=== PATIENT | female | born 1990 | race Two or more races ===

== ENCOUNTER → 2016-07-14 | Outpatient (REF) | payer OTHER | LOC: M SFHCLERA 12:49 | PROVIDERS: ATTEND Physician Assistant | DX: J02.9 Acute pharyngitis, unspecified (principal) ==

== ENCOUNTER 2017-07-06 19:03 | Emergency (ER) | payer OTHER | END 2017-07-06 22:45 | disposition left against medical advice (07) | LOC: M ED 22:45 | DX: Z53.29 Procedure and treatment not carried out because of patient's decision for other reasons (principal) ==

== ENCOUNTER 2017-09-07 21:32 | Emergency (ER) | payer OTHER ==
[2017-09-07 22:30] LABS: HEMATOCRIT 37.8 % (36.0-47.0); HEMOGLOBIN 12.5 g/dl (12.0-15.5); MEAN CORPUSCULAR HEMOGLOBIN 30.8 pg (27.0-33.0); MEAN CORPUSCULAR HGB CONC 33.1 g/dl (32.0-36.5); MEAN CORPUSCULAR VOLUME 93.1 fl (80.0-96.0); PLATELET COUNT, AUTOMATED 256 10^3/uL (150-450); RED BLOOD COUNT 4.06 10^6/uL (4.00-5.40); RED CELL DISTRIBUTION WIDTH 12.6 % (11.5-14.5); WHITE BLOOD COUNT 8.7 10^3/uL (4.0-10.0)
[2017-09-07 22:41] LABS: CONTROL LINE HCG INT CTR LINE PRESENT; HCG, SERUM QUALITATIVE NEGATIVE (NEGATIVE)
[2017-09-07 22:43] LABS: AMPHETAMINES LEVEL URINE NEGATIVE (NEGATIVE); BARBITURATES URINE NEGATIVE (NEGATIVE); BENZODIAZEPINES URINE NEGATIVE (NEGATIVE); CANNABINOIDS URINE POSITIVE (NEGATIVE); COCAINE METABOLITE URINE NEGATIVE (NEGATIVE); METHADONE URINE NEGATIVE (NEGATIVE); OPIATES URINE NEGATIVE (NEGATIVE); PHENCYCLIDINE URINE NEGATIVE (NEGATIVE)
[2017-09-07 23:02] LABS: ALBUMIN 3.5 GM/DL (3.2-5.2); ALBUMIN/GLOBULIN RATIO 0.95 (1.00-1.93); ALKALINE PHOSPHATASE 59 U/L (45-117); ALT/SGPT 30 U/L (12-78); ANION GAP 8 MEQ/L (8-16); AST/SGOT 30 U/L (7-37); BILIRUBIN,DIRECT < 0.1 MG/DL (0.0-0.2); BILIRUBIN,TOTAL 0.2 MG/DL (0.2-1.0); BLOOD UREA NITROGEN 9 MG/DL (7-18); CALCIUM LEVEL 8.3 MG/DL (8.5-10.1); CARBON DIOXIDE LEVEL 25 MEQ/L (21-32); CHLORIDE LEVEL 110 MEQ/L (98-107); CREATININE FOR GFR 0.63 MG/DL (0.55-1.30); ETHYL ALCOHOL (ETHANOL) 0.009 % (0.000-0.010); GLOMERULAR FILTRATION RATE > 60.0 (>60); GLUCOSE, FASTING 81 MG/DL (70-100); POTASSIUM SERUM 3.8 MEQ/L (3.5-5.1); SALICYLATE LEVEL 2.7 MG/DL (5.0-30.0); SODIUM LEVEL 143 MEQ/L (136-145); TOTAL PROTEIN 7.2 GM/DL (6.4-8.2)
[2017-09-07 23:04] LABS: ACETAMINOPHEN LEVEL < 2.0 UG/ML (10.0-30.0)
== END 2017-09-07 23:53 | disposition home or self-care (01) ==
LOC: M ED 21:32
DX: F43.0 Acute stress reaction (principal); M54.5 Low back pain; F17.210 Nicotine dependence, cigarettes, uncomplicated; Z79.84 Long term (current) use of oral hypoglycemic drugs
CPT/HCPCS: G0480

== ENCOUNTER 2017-10-21 14:18 | Emergency (ER) | payer OTHER | END 2017-10-21 16:27 | disposition home or self-care (01) | LOC: M ED 14:18 | DX: K04.7 Periapical abscess without sinus (principal) | CPT/HCPCS: 99282 ==

== ENCOUNTER → 2018-06-04 | Emergency (ER) | payer OTHER ==
[~2018-06-04] VITALS: Ht 167.6 cm; Wt 100.0 kg
[~2018-06-04] MED LIST: ASPI1TAB77 PO; BACT800T5 PO; CLEO300C2 PO; HYDR-3715 PO; LIDO2SO SSP; METF500T13 PO; TYLETAB14 PO
[2018-06-04 23:50] VITALS: BP 131/75
== END | disposition left against medical advice (07) ==
LOC: M ED 20:44
DX: Z53.21 Procedure and treatment not carried out due to patient leaving prior to being seen by health care provider (principal)

== ENCOUNTER 2018-06-08 10:35 | Emergency (ER) | payer OTHER ==
[~2018-06-08] VITALS: Ht 167.6 cm; Wt 109.1 kg
[2018-06-08 10:35] VITALS: BP 141/80
[~2018-06-08 10:35] MED LIST changes: -BACT800T5 PO; -TYLETAB14 PO
[2018-06-08] MEDS ORDERED: LIDOCAINE 1% MDV 20ML VIAL SC ONE (11:00)
[2018-06-08] MEDS ORDERED: BACT800T5 PO (11:13)
[2018-06-08] MEDS ORDERED: TYLETAB14 PO (11:14)
== END 2018-06-08 11:36 | disposition home or self-care (01) ==
LOC: M ED 10:35
DX: N75.0 Cyst of Bartholin's gland (principal); F31.9 Bipolar disorder, unspecified; F43.10 Post-traumatic stress disorder, unspecified

== ENCOUNTER 2018-06-17 11:09 | Emergency (ER) | payer OTHER ==
[~2018-06-17] VITALS: Ht 167.6 cm; Wt 112.0 kg
[2018-06-17 11:09] VITALS: BP 131/77
[~2018-06-17 11:09] MED LIST changes: +BACT800T5 PO; +TYLETAB14 PO
== END 2018-06-17 11:34 | disposition home or self-care (01) ==
LOC: M ED 11:09
DX: Z48.02 Encounter for removal of sutures (principal)

== ENCOUNTER 2018-07-23 12:11 | Emergency (ER) | payer OTHER ==
[~2018-07-23] VITALS: Ht 167.6 cm; Wt 116.9 kg
[2018-07-23] MEDS ORDERED: ACETAMINOPHEN 500 MG TAB PO ONE (13:15)
[2018-07-23] MEDS ORDERED: LEVALBUTEROL 1.25 MG/0.5 ML CONCENTRATE NEB INH PRN (13:15)
[2018-07-23] MEDS ORDERED: METOCLOPRAMIDE 10 MG TAB PO ONE (13:15)
[2018-07-23 14:02] LABS: INFLUENZA A AMPLIFICATION NEGATIVE (NEGATIVE); INFLUENZA B AMPLIFICATION NEGATIVE (NEGATIVE)
--- NOTE | 2018-07-23 14:59 | REP ---
Chest two views HISTORY: Cough Comparison: None The lungs are clear. The heart is normal in size. The pulmonary vasculature is normal in appearance. The bony structure is intact. IMPRESSION: No acute disease. Electronically Signed by Alexis Cummings MD 07/23/2018 02:51 P
[2018-07-23] MEDS ORDERED: PROAAER10 INH (15:14)
[2018-07-23] MEDS ORDERED: PRED20TA PO (15:14)
[2018-07-23] MEDS ORDERED: AUGM875T28 PO (15:14)
[2018-07-23] MEDS ORDERED: MUCI600T31 PO (15:14)
[2018-07-23 15:29] VITALS: BP 116/84
[2018-07-23] MEDS ORDERED: AUGMENTIN 875 MG TAB PO ONE (15:30)
== END 2018-07-23 15:32 | disposition home or self-care (01) ==
LOC: M ED 12:11
DX: J20.9 Acute bronchitis, unspecified (principal); H66.93 Otitis media, unspecified, bilateral; E28.2 Polycystic ovarian syndrome; M54.9 Dorsalgia, unspecified; F31.9 Bipolar disorder, unspecified; F43.10 Post-traumatic stress disorder, unspecified; F41.9 Anxiety disorder, unspecified; Z98.84 Bariatric surgery status; Z87.891 Personal history of nicotine dependence

== ENCOUNTER 2018-08-17 21:48 | Emergency (ER) | payer OTHER ==
[~2018-08-17] VITALS: Ht 167.6 cm; Wt 113.6 kg
[~2018-08-17 21:48] MED LIST changes: +AUGM875T28 PO; +MUCI600T31 PO; +PRED20TA PO; +PROAAER10 INH
[2018-08-17] MEDS ORDERED: SUCRALFATE SUSP 1GM/10ML UD PO ONE (22:30)
[2018-08-17] MEDS ORDERED: GI COCKTAIL 50ML BTL(HYOSCYAMINE/MAALOX/LIDOCAINE VISCOUS)(1:3:1) PO ONE (22:30)
[2018-08-17] MEDS ORDERED: PANTOPRAZOLE 40MG TAB (PROTONIX) PO ONE (22:30)
[2018-08-17 22:56] LABS: BASO % 0.5 % (0.0-1.0); EOS # 0.3 10^3/uL (0.0-0.50); EOS % 3.6 % (0.0-3.0); HEMATOCRIT 35.1 % (36.0-47.0); HEMOGLOBIN 11.3 g/dl (12.0-15.5); LYMPH # 2.8 10^3/uL (1.5-6.5); LYMPH % 37.5 % (24.0-44.0); MEAN CORPUSCULAR HEMOGLOBIN 30.6 pg (27.0-33.0); MEAN CORPUSCULAR HGB CONC 32.2 g/dl (32.0-36.5); MEAN CORPUSCULAR VOLUME 95.1 fl (80.0-96.0); MONO # 0.5 10^3/uL (0.0-0.8); MONO % 6.6 % (0.0-5.0); NEUTROPHILS # 3.9 10^3/uL (1.8-7.7); NEUTROPHILS % 51.7 % (36.0-66.0); PLATELET COUNT, AUTOMATED 246 10^3/uL (150-450); RED BLOOD COUNT 3.69 10^6/uL (4.00-5.40); WHITE BLOOD COUNT 7.5 10^3/uL (4.0-10.0)
[2018-08-17 23:21] LABS: ALBUMIN 3.3 GM/DL (3.2-5.2); ALT/SGPT 21 U/L (12-78); BILIRUBIN,DIRECT 0.1 MG/DL (0.0-0.2); BILIRUBIN,TOTAL 0.2 MG/DL (0.2-1.0); BLOOD UREA NITROGEN 9 MG/DL (7-18); CALCIUM LEVEL 8.5 MG/DL (8.5-10.1); CARBON DIOXIDE LEVEL 28 MEQ/L (21-32); CHLORIDE LEVEL 108 MEQ/L (98-107); CREATININE FOR GFR 0.71 MG/DL (0.55-1.30); GLOMERULAR FILTRATION RATE > 60.0 (>60); GLUCOSE, FASTING 76 MG/DL (70-100); LIPASE 111 U/L (73-393); POTASSIUM SERUM 3.9 MEQ/L (3.5-5.1); SODIUM LEVEL 141 MEQ/L (136-145); TOTAL PROTEIN 6.7 GM/DL (6.4-8.2)
[2018-08-18] MEDS ORDERED: PROT1TAB2 PO (00:16)
[2018-08-18] MEDS ORDERED: SUCR1SS PO (00:16)
[2018-08-18 01:11] VITALS: BP 110/70
--- NOTE | 2018-08-18 07:07 | ECGEPIP ---
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
== END 2018-08-18 01:36 | disposition home or self-care (01) ==
LOC: M ED 21:48
DX: K21.9 Gastro-esophageal reflux disease without esophagitis (principal); F31.9 Bipolar disorder, unspecified; E66.9 Obesity, unspecified; Z98.84 Bariatric surgery status; F17.200 Nicotine dependence, unspecified, uncomplicated

== ENCOUNTER 2018-09-06 14:30 | Emergency (ER) | payer OTHER ==
[~2018-09-06] VITALS: Ht 167.6 cm; Wt 115.0 kg
[~2018-09-06 14:30] MED LIST changes: +PROT1TAB2 PO; +SUCR1SS PO
[2018-09-06] MEDS ORDERED: ACET1TAB55 (14:42)
[2018-09-06] MEDS ORDERED: AMOX500C PO (16:40)
[2018-09-06 16:43] VITALS: BP 158/88
[2018-09-06] MEDS ORDERED: PERCOCET 5MG/325MG TAB PO ONE (16:45)
[2018-09-06] MEDS ORDERED: AMOXICILLIN 500 MG CAP PO ONE (16:45)
== END 2018-09-06 16:47 | disposition home or self-care (01) ==
LOC: M ED 14:30
DX: K02.9 Dental caries, unspecified (principal); H92.01 Otalgia, right ear; F41.9 Anxiety disorder, unspecified; F31.9 Bipolar disorder, unspecified; F43.10 Post-traumatic stress disorder, unspecified; E28.2 Polycystic ovarian syndrome

== ENCOUNTER 2019-04-05 15:11 | Outpatient (CLI) | payer OTHER ==
[~2019-04-05] VITALS: Ht 170.2 cm; Wt 136.2 kg
[~2019-04-05 15:11] MED LIST changes: +ACET1TAB55 PO; +AMOX500C PO
[2019-04-05 15:40] VITALS: BP 140/93
[2019-04-05] MEDS ORDERED: PRENTAB9 PO (15:48)
[2019-04-05] MEDS ORDERED: ASPI81TA85 PO (15:48)
[2019-04-05 15:58] VITALS: BP 105/73
[2019-04-05 18:08] VITALS: BP 142/87
[2019-04-05 18:37] VITALS: BP 117/81
--- NOTE | 2019-04-05 19:02 | IPNPDOC ---
Text Note Date of Service The patient was seen on 04/05/19. NOTE Triage Note Ilana is a 28yo with SIUP at approx 35wk presenting for various symptoms today. She notes a fever at home, some nausea, runny nose yesterday, sore throat, some back pain. Did not go to work today. Has felt good movement, no ctx, no lof, no vaginal bleeding. No MCGREGOR/vision changes/SOB/Abd pain. Vitals: bp 140/93, 105/73, 142/87, 117/81 (pulse 78, pulse ox 98%) Afebrile General: WDWN, obese, gravid, resting comfortably in bed Abdomen: soft, NTTP Extremities: trace edema BLE, no pain with palpation of calves Cat I FHRT with bl 125, +accels, -decels, mod ynes [place]: no ctx Labs: Respiratory panel negative Rapid strep negative Assessment: Ilana is a 28yo with SIUP at approx 35wk with myriad complaints but negative testing for flu and strep throat. Reassuring assessment. Had mild range bp followed by normal (no hx of HTN dz per pt)- question appropriateness of bp cuff used, no sx of pre-E. Normal exam, afebrile. Plan: -Safe for discharge home -Encouraged increased hydration (patient was drinking water well in triage and ate a sandwich) -Patient instructed to come to clinic Tu or Sun for bp check -Keep next appts for 36wk growth scan and 36wk ob visit -tylenol prn pain or fever -discussed return precautions MD KARLEE Terry,[place], I+O VSGuanako, I+O Vital Signs Date Time Temp Pulse Resp B/P (MAP) Pulse Ox O2 Delivery O2 Flow Rate FiO2 04/05/19 18:08 77 16 142/87 (105) 04/05/19 15:40 98.8 96 Room Air Abigail Callaway MD Apr 05, 2019 19:02
== END 2019-04-05 18:58 | disposition home or self-care (01) ==
LOC: M LDO 15:11
PROVIDERS: ATTEND Obstetrics & Gynecology
DX: O26.893 Other specified pregnancy related conditions, third trimester (principal); Z3A.35 35 weeks gestation of pregnancy; R11.0 Nausea; R09.89 Other specified symptoms and signs involving the circulatory and respiratory systems; R50.9 Fever, unspecified; O99.53 Diseases of the respiratory system complicating the puerperium; J02.9 Acute pharyngitis, unspecified; M54.5 Low back pain; Z79.899 Other long term (current) drug therapy
CPT/HCPCS: 59025; 76815; 87430; 87486; 87581; 87633; 87798; G0378; G0463

== ENCOUNTER 2019-04-11 10:25 | Outpatient (CLI) | payer OTHER ==
[~2019-04-11] VITALS: Ht 170.2 cm; Wt 136.4 kg
[~2019-04-11 10:25] MED LIST changes: -MAPA500T2 PO
[2019-04-11 10:46] VITALS: BP 136/70
--- NOTE | 2019-04-11 23:11 | HPE ---
DATE OF ADMISSION: 04/11/2019 28-year-old 2, para 0, abortio 1, LMP 07/31/2018, estimated date of delivery (EDC) 05/07/2019 admitted at 36 and 3, history of having eaten some food at [employer] and now having nausea, diarrhea and vomiting as well as the rest her friends having similar episode of GI upset, possibly food poisoning. She denies any vaginal loss or bleeding or contractions. Risk factors. Her BMI is 40.5. She has had a gastric sleeve bypass and recent ultrasound shows mild oligohydramnios with PHANI 6.3. PAST HISTORY Spontaneous in 2018. Labs are O+, HIV negative, hep negative, RPR negative, rubella immune. Varicella nonimmune. Pap normal. Urine negative. Gonorrhea and chlamydia negative, an A1c was 5.2, blood pressure is 136/70, respirations 18, pulse 126 and temperature 98.6, unable to get a urine as she was unable to pee. While here she had some ice chips. She never vomited, had no diarrhea. PHYSICAL EXAMINATION: On examination she was in no distress. Symphysis fundus height was 36, vertex, category one strip. No contractions, moderate variability. Baseline was normal. No decelerations. She was not dilated. Cervix was posterior, closed and high presenting part. On ultrasound cervix was 2.8 cm and not dilated. Baby is the 50th percent at 2882 grams. PHANI was 6.3 which is mild oligo and S/D ratio was 2.80. Our plan is to bring her in tomorrow morning with adequate hydration, repeat the PHANI and the NST. She was given precautions. We discussed the plan of care with the patient. She is expecting a call from labor and delivery tomorrow morning. SUMMARY: We have a GI upset secondary to food and BMI of 40.5 with mild oligohydramnios. Category one strip and a biophysical of 8/8.
[2019-04-12] MEDS ORDERED: MAPA500T2 PO (10:13)
== END 2019-04-11 11:40 | disposition home or self-care (01) ==
LOC: M LDO 10:25
PROVIDERS: ATTEND Obstetrics & Gynecology
DX: O99.613 Diseases of the digestive system complicating pregnancy, third trimester (principal); R19.7 Diarrhea, unspecified; O99.213 Obesity complicating pregnancy, third trimester; E66.01 Morbid (severe) obesity due to excess calories; O99.843 Bariatric surgery status complicating pregnancy, third trimester; O41.03X0 Oligohydramnios, third trimester, not applicable or unspecified; Z3A.36 36 weeks gestation of pregnancy
CPT/HCPCS: 59025; 76811; G0378; G0463

== ENCOUNTER → 2019-04-11 | Outpatient (CLI) | payer OTHER ==
[~2019-04-11] MED LIST changes: +ASPI81TA85 PO; +MAPA500T2 PO; +PRENTAB9 PO
--- NOTE | 2019-04-11 14:52 | REP ---
Clinical: Growth evaluation. Comparison: None . Findings: Examination demonstrates a single live intrauterine in cephalic presentation. motion is identified by technologist. Placenta is noted anterior and grade I without evidence for placenta previa or abruption. Amniotic fluid volume is mildly below normal range. Cervix measures 2.8 cm in length and appears closed. No evidence for nuchal cord. Gestational age by LMP 36 weeks 2 days with JOSE LUIS 05/07/2019 . Gestational age by current measurements 36 weeks 0 days with JOSE LUIS 05/09/2019 . FHR equals 144 beats per minute. Estimated weight 2882 grams ( 50th percentile). Amniotic fluid index: 6.3 cm (7.6 - 24.8) Umbilical cord SD ratio: 2.80 (1.88 - 2.88) Impression: 1. Single live advanced gestation in cephalic presentation demonstrating appropriate interval growth. 2. Amniotic fluid volume is below normal range suggesting mild oligohydramnios. Electronically Signed by Abelino Dent MD 04/11/2019 12:41 P
== END ==
LOC: M RAD 11:47
PROVIDERS: ATTEND Nurse Practitioner Women's Health
DX: Z36.9 Encounter for antenatal screening, unspecified (principal); Z3A.36 36 weeks gestation of pregnancy

== ENCOUNTER 2019-04-12 09:51 | Outpatient (CLI) | payer OTHER ==
[~2019-04-12] VITALS: Ht 170.2 cm; Wt 134.9 kg
[2019-04-12 10:07] VITALS: BP 128/71
[2019-04-12] MEDS ORDERED: MAPA500T2 PO (10:13)
--- NOTE | 2019-04-12 10:59 | IPNPDOC ---
Text Note Date of Service The patient was seen on 04/12/19. NOTE patient is a 28 yo @ 36+3wks gestation presents to l&d for reevaluation for low PHANI (~6cm) yesterday. She had n/v yesterday from eating something at [facility]. Reports she has been keeping po down though not drinking much fluids. The plan today per Dr. Sanchez was to have patient come in for repeat PHANI, NST and IV fluid bolus. patient denies ctx/lof/vb. +FM. vitals: normal NAD abd: gravid, soft, nt fht: 125/mod ynes/pos accel/no decel toco: quiet taus: cephalic, anterior/fundal placenta. SDP: 3.9cm a/p patient @ 36+3wks, normal exam. hydration counseling given. labor/fkc precautions given. f/u with clinic scheduled appointments. DO Eun VS,Fishbone, I+O VS, Fishbone, I+O Vital Signs Date Time Temp Pulse Resp B/P (MAP) Pulse Ox O2 Delivery O2 Flow Rate FiO2 04/12/19 10:07 97.8 96 16 128/71 (90) ABRAHAM BECERRA DO Apr 12, 2019 10:59
[2019-04-12] MEDS ORDERED: LR 1,000 ML IV ONE (11:00)
[2019-04-12 11:27] VITALS: BP 128/81
== END 2019-04-12 11:29 | disposition home or self-care (01) ==
LOC: M LDO 09:51
PROVIDERS: ATTEND Obstetrics & Gynecology
DX: O41.8X30 Other specified disorders of amniotic fluid and membranes, third trimester, not applicable or unspecified (principal); Z3A.36 36 weeks gestation of pregnancy
CPT/HCPCS: 59025; 76815; G0378; G0463

== ENCOUNTER 2019-05-08 17:05 | Inpatient (IN) | payer OTHER ==
[~2019-05-08] VITALS: Ht 167.6 cm; Wt 134.7 kg
[~2019-05-08 17:05] MED LIST changes: +MAPA500T2 PO
[2019-05-08 17:29] VITALS: BP 138/77
[2019-05-08 17:40] VITALS: BP 133/62
[2019-05-08] MEDS ORDERED: PENICILLIN G POTASSIUM IV 5 MU in D5W MINI-BAG PLUS 100 ML IV STA (18:35)
[2019-05-08] MEDS ORDERED: LACTATED RINGER'S 1000 ML IV STA (18:35)
[2019-05-08] MEDS ORDERED: SIMETHICONE 80 MG CHEW TAB PO PRN (18:45)
[2019-05-08] MEDS ORDERED: CALCIUM CARBONATE 500 MG CHEW U/D PO PRN (18:45)
[2019-05-08] MEDS ORDERED: diphenhydrAMINE 25 MG CAP PO PRN (18:45)
[2019-05-08] MEDS ORDERED: ACETAMINOPHEN 500 MG TAB PO PRN (18:45)
[2019-05-08] MEDS ORDERED: MOM 30ML SUSPENSION UDC PO PRN (18:45)
[2019-05-08 18:54] VITALS: BP 131/74
[2019-05-08] MEDS: miSOPROStol 50 MCG 1/2 TAB (S0191) PO PRN (18:54)
--- NOTE | 2019-05-08 18:55 | HPEPDOC ---
Obstetrical History & Physical General Date of Admission May 08, 2019 at 17:05 History of Present Illness Patient is a 28yo at 40.1wks by LMP c/w 8wk US for IOL . Denies contr actions, bleeding, loss of fluid, headaches, RUQ pain, or vision changes. + movement. Chief Complaint: Group B Positive, Other (IOL) Information Provided By: Patient Care Care: Good Care Dating Final EDC: May 07, 2019 Final EDC by: LMP Antepartum Course Height (inches): 66 Pre- weight (lbs.): 253 Admission Weight (lbs.): 297 Change in Weight (lbs.): 44 Past Medical History Past Obstetrical History : Past Obstetrical History: Primgravida GRIP BOSS History: No pertinent history Past Medical History Medical History none Surgical History: Other (Gastric sleeve) Family History Significant Family History: No pertinent family hx Social History Marital Status: Family situation: Spouse/partner home Psychosocial History: No pertinent psych hx * Smoker: non-smoker Alcohol: Denies Drugs: denies Abuse Violence Screening Have you been hit/kicked/slapp: No Have you been sexually assault: No Imunizations Tdap status: current Influenza Status: current Allergies Coded Allergies: No Known Allergies (Unverified , 04/12/19) Medications Scheduled No.137/Iron/Folic Acd ( Vitamin Tablet) 1 Each Tablet, 1 TAB PO DAILY Physical Examination Physical Examination GENERAL: Alert and oriented times three. BREAST: . ABDOMEN: Gravid and non-tender to touch. FETUS: Is vertex (VTX) by sterile vaginal examination (SVE), fetus is 3300gm by [place]. HEART RATE: Regular rate and rhythm. LUNGS: Clear to auscultation (CTA). EXTREMITIES: No edema. Vital Signs/I&O Vital Signs Date Time Temp Pulse Resp B/P (MAP) Pulse Ox O2 Delivery O2 Flow Rate FiO2 05/08/19 17:40 79 18 133/62 (85) 05/08/19 17:29 98.0 98 Room Air Laboratory Data 24H LABS Laboratory Tests 2 05/08/19 17:20: Serology Scanned Report Hepatitis B Testing Pertinent Laboratoy Data Blood Type: O+ RBC Antibody Screen: Negative HIV: Negative Hepatitis B: Negative Rapid Plasma Reagin: Nonreactive Rubella: Immune Varicella: Nonreactive Chlamydia/Gonorrhea: Negative Group B Streptococcus: Positive Cystic Fibrosis: Negative Anatomy Ultrasound Ultrasound Date: Dec 16, 2018 Placenta Location: Anterior Normal Anatomy: Yes Placenta Previa: No Estimated Weight (grams): 338 Other Ultrasounds 04/11/2019 vtx, 2882gm Steroid Therapy Steroid Therapy: No Vaginal Examination Dilation: 1cm Effacement: 50% Station: -2 Cervical Consistency: Soft Cervical Position: Middle Presentation: Cephalic presentation Assessment Heart Rate (FHR): 130 Variability: Moderate Accelerations: Positive Decelerations: None Tocometer Contractions: No Multi-drug resistant Organism: No history of MDRO Assessment/Plan Assessment Patient is a 28yo at 40.1wks by LMP c/w 8wk US for IOL . Admit for IOL for postdates and expect delivery by . Pain management per patient preference, which was discussed with her. I discussed risks of with patient of failure with section, distress, bleeding, infection, , vaginal or perineal or neighboring organ tear. Currently, fetus is reassuring. GBS is positive, will need for antibiotics. Plan Admit and orient. 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 Diet: Regular. Group B Streptococcus (GBS) positive. Labs and intravenous (IV) per unit protocol. Counseled on Pitocin and cytotec for induction of labor (IOL). Lactated Ringers (LR): Bolus 500 mL, then at 125 mL/hr. Anticipate normal spontaneous delivery (). Pain management per patient preference. Rasheeda Courtney MD May 08, 2019 18:55
[2019-05-08 19:01] LABS: BASO % 0.1 % (0.0-1.0); EOS # 0.1 10^3/uL (0.0-0.5); EOS % 0.5 % (0.0-3.0); HEMATOCRIT 36.8 % (36.0-47.0); HEMOGLOBIN 11.9 g/dl (12.0-15.5); LYMPH # 1.9 10^3/uL (1.5-5.0); LYMPH % 20.7 % (24.0-44.0); MEAN CORPUSCULAR HEMOGLOBIN 29.5 pg (27.0-33.0); MEAN CORPUSCULAR HGB CONC 32.3 g/dl (32.0-36.5); MEAN CORPUSCULAR VOLUME 91.3 fl (80.0-96.0); MONO # 0.5 10^3/uL (0.0-0.8); MONO % 5.3 % (0.0-5.0); NEUTROPHILS # 6.7 10^3/uL (1.5-8.5); NEUTROPHILS % 73.1 % (36.0-66.0); PLATELET COUNT, AUTOMATED 265 10^3/uL (150-450); RED BLOOD COUNT 4.03 10^6/uL (4.00-5.40); WHITE BLOOD COUNT 9.2 10^3/uL (4.0-10.0)
[2019-05-08] MEDS ORDERED: **PENDING PCN ENTRY XX SCH (21:00)
[2019-05-08] MEDS ORDERED: PENICILLIN G POTASSIUM IV 2.5 MU in IV 1 EA IV SCH (22:45)
[2019-05-09] VITALS (16 sets, daily range): BP systolic 107–143; BP diastolic 56–95
[2019-05-09] MEDS: miSOPROStol 50 MCG 1/2 TAB (S0191) PO PRN ×2 (00:58→07:18)
--- NOTE | 2019-05-09 07:09 | IPNPDOC ---
Text Note Date of Service The patient was seen on 05/09/19. NOTE Patient feels mild intermittent cramps. Good movement. No LOF or bloody show. Received x2 cytotec 50mcg PO. VS WNL GEN NAD, sleeping ABD gravid, nontender SVE /2, difficult to examen due to patient discomfort FHT: cat 1, 120s, reactive, no decels, difficult to picking tech ctx A/P: Fetus reassuring. Consider carter bulb. Continue Po cytotec 50mcg. VS,Fishbone, I+O VS, Fishbone, I+O Laboratory Tests 05/08/19 18:35 Vital Signs Date Time Temp Pulse Resp B/P (MAP) Pulse Ox O2 Delivery O2 Flow Rate FiO2 05/09/19 01:00 97.3 82 120/63 (82) 05/08/19 18:54 18 05/08/19 17:29 98 Room Air I&O- Last 24 Hours up to 6 AM 05/09/19 06:00 Intake Total 600 ml Balance 600 ml Rasheeda Courtney MD May 09, 2019 07:09
--- NOTE | 2019-05-09 08:28 | IPNPDOC ---
Obstetrical Progress Note Date of Service May 09, 2019 Subjective Received report from Dr. Courtney and assumed care of 28yo at 40+2wks who was admitted yesterday for IOL d/t morbid obesity (BMI >40). She has received 3x doses of 50mcg PO cytotec; last dose this AM at 0720. Pt reports +FM, denies LOF/VB/CTX. She denied any cramping to me. She is currently eating breakfast and desires to get up to the shower and on the ball. She states she had an emesis episode approximately 15 minutes after her last cytotec administration; she denies seeing the medication, but there is a good possibility that it did not get absorbed. We can consider a 5th dose, if needed. Objective O: VSS, afebrile FHR 125, moderate variability, +accels, no decels noted CTX by TOCO: none VE deferred; last was 0700 (150/-2) Laboratory Tests 05/08/19 18:35 Vital Signs Date Time Temp Pulse Resp B/P (MAP) Pulse Ox O2 Delivery O2 Flow Rate FiO2 05/09/19 07:17 98.1 85 16 130/90 (103) 05/08/19 17:29 98 Room Air Assessment and Plan Status: Reassuring Anticipate: Vaginal Delivery Additional Comments A: Ilana is a 28yo at 40+2wks undergoing IOL for morbid obesity, not in labor; Category I FHT P: Continue IOL and plan for Cytotec #4 in 4 hours after last dose Consider CRB with next exam CEFM x2 for 1 hour after each dose of cytotec, then can be intermittent monitoring Continue to monitor maternal/ status Consult with OB if indicated Anticipate AGUEDA ROSS CNM May 09, 2019 08:28
[2019-05-09] MEDS ORDERED: miSOPROStol 25 MCG 1/4 TAB (S0191) As Ordered ONE (11:54)
--- NOTE | 2019-05-09 12:28 | IPNPDOC ---
Obstetrical Progress Note Date of Service May 09, 2019 Subjective 28yo at 40+2wks undergoing IOL for morbid obesity. She reports some intermittent cramping, +FM; she denies VB/LOF. She has no OB concerns at this time and she consents for a cervical exam. Her supportive partner is present at the bedside. Objective O: VSS, afebrile FHR 130s, moderate variability, + accels, no decels noted CTX by TOCO: few occassionals, mild, none recent VE: /-2 (unchanged) CRB at 40/40 an Cytotec #4 (25mcg vaginally) placed at 1207 Vital Signs Date Time Temp Pulse Resp B/P (MAP) Pulse Ox O2 Delivery O2 Flow Rate FiO2 05/09/19 10:04 98.3 85 18 131/60 (83) 05/08/19 17:29 98 Room Air Sterile Vaginal Examination Cervical Consistency: Medium Cervical Position: Posterior Postion/Presentation: Cephalic presentation Assessment and Plan Status: Reassuring Group B Streptococcus: Positive Anticipate: Vaginal Delivery Additional Comments A: 28yo at 40+2wks undergoing IOL for morbid obesity, not in labor; GBS Positive. Category I FHT. P: CRB and Cytotec #4 placed, pt tolerated well CEFM x1 hour, can be intermittent with Category I tracing Can eat lunch reassess in 4 hours or sooner PRN Consult with OB if indicated Anticipate AGUEDA ROSS CNM May 09, 2019 12:28
[2019-05-09] MEDS ORDERED: miSOPROStol 25 MCG 1/4 TAB (S0191) PV ONE (12:30)
[2019-05-09] MEDS: PROMETHAZINE INJ 25 MG/ML VIAL (J2550) IV PRN (14:39)
[2019-05-09] MEDS ORDERED: ONDANSETRON 4MG/2ML VIAL (J2405) IV ONE (16:00)
[2019-05-09] MEDS: BUTORPHANOL 2 MG/ML INJ (J0595) IV PRN (17:03)
--- NOTE | 2019-05-09 17:46 | IPN ---
DATE: 05/09/2019 28-year-old 2, para 0 at 40 and 2 weeks of gestation was admitted for induction of labor. Her risk factors is she is GBS positive. She has a BMI of 42. She has had a total weight change of 45 pounds. Presently her weight is 297. She is O+. She has had three boluses of three lots of Cytotec. She has had one Barroso bulb catheter. She has a category one strip. She is afebrile and presently she is nauseated and vomiting and despite anti nausea and she is unable to maintain any fluids. She has presently an IV running. We examined her and we are unable to detect any change. The Barroso bulb is still in place. We are unable to examine the cervix because of the vaginal bulb being blown up. The patient says she is having a lot of pain when she has a contraction mostly in her back. Our plan of care is to hydrate the patient, give her some Stadol at the present time with a category one strip, initiate GBS prophylaxis at 1900 hours and then augment with Pitocin pending a category one strip. The plan of care was expressed to the patient and she expressed understanding of our rationale.
[2019-05-09] MEDS ORDERED: PENICILLIN G POTASSIUM IV 5 MU in D5W MINI-BAG PLUS 100 ML IV STA (18:51)
[2019-05-09] MEDS: LR 1,000 ML IV SCH (19:55)
--- NOTE | 2019-05-09 20:04 | IPN ---
DATE: 05/09/2019 This lady is a 1, para 0 at 42 weeks of gestation. She had induction of labor because of being early post term and she had four lots of Cytotec followed by a Barroso bulb catheter. The Barroso bulb catheter has subsequently fallen out. She is having minimal contractions, category 1 strip. On pelvic examination the vertex is -3, soft, 50% effaced, high and still 2 cm. No evidence of active contractions. Our plan of management presently is to augment with Pitocin. She had significant reactions to Cytotec in that she has extreme nausea and vomiting, which was unrelenting nausea. Therefore, we will initiate the penicillin G prophylaxis for group B Streptococcus (GBS) and commenced with Pitocin.
[2019-05-09] MEDS ORDERED: OXYTOCIN DRIP 30 UNITS in IV 1 EA IV SCH (20:45)
[2019-05-10] VITALS (45 sets, daily range): BP systolic 116–178; BP diastolic 62–107
[2019-05-10] MEDS: PENICILLIN G POTASSIUM IV 2.5 MU in IV 1 EA IV SCH ×6 (00:09→19:18)
[2019-05-10] MEDS: LR 1,000 ML IV SCH ×2 (07:16→12:55)
[2019-05-10] MEDS: BUTORPHANOL 2 MG/ML INJ (J0595) IV PRN (08:07)
[2019-05-10] MEDS: PROMETHAZINE INJ 25 MG/ML VIAL (J2550) IV PRN (08:07)
--- NOTE | 2019-05-10 10:03 | IPNPDOC ---
Text Note Date of Service The patient was seen on 05/10/19. NOTE 28yo at 40+3wks undergoing IOL for morbid obesity. She was admitted night of . Induction started with cytotec x 3. carter bulb was placed yesterday, came out earlier this AM. she is currently on pit. Stadol for pain management at this point. Patient requesting for primary section. pit: 10mU vitals: normal nad, laying in bed fht: 120/mod ynes/pos accel/no decel toco: q 2-7mins ce: 2-05/13/-3, attempt to AROM unsuccessful a/p patient not in labor. Discussed with patient induction for first time mom can take a few days. once she gets to active phase then we can start the clock. Due to significant risks of major surgery like primary delivery, recommend continuing trial of vaginal delivery at this time. patient in agreement. Continue to titrate pit to effect. recheck in 6hrs. Eun, VS,[place]bone, I+O VS, Fishbone, I+O Vital Signs Date Time Temp Pulse Resp B/P (MAP) Pulse Ox O2 Delivery O2 Flow Rate FiO2 05/10/19 08:31 16 05/10/19 08:06 88 132/73 (92) 05/10/19 07:05 98.1 05/08/19 17:29 98 Room Air I&O- Last 24 Hours up to 6 AM 05/10/19 06:00 Intake Total 250 ml Balance 250 ml ABRAHAM BECERRA DO May 10, 2019 09:28
--- NOTE | 2019-05-10 11:15 | IPN ---
DATE: 05/10/2019 This lady is admitted for induction of labor being 40 and 2 weeks of gestation. She did start with four lots of Cytotec and then she had a Barroso bulb, which fell out, and then she was augmented with Pitocin. There were some areas, after starting Pitocin, on the monitor that showed reduced variability, probably category II strip with occasional late. We discontinued the Pitocin for awhile. I reinitiated Pitocin, baby was doing well. Contractions have not picked up at the present time. The patient is afebrile, is on IV antibiotics for Group B Streptococcus (GBS). Membranes are intact. Our plan is to continue Pitocin to the point where we have the ability to do an artificial rupture of membranes (AROM). There is basically no change in her cervix at the present time; still vertex -2, 2 cm and high, OP and thick. Safe to proceed.
[2019-05-10] MEDS ORDERED: FENTANYL 2MCG/ML ROPIVACAINE 0.2% IN 0.9% NACL 100ML IVBAG As Ordered ONE (13:59)
--- NOTE | 2019-05-10 14:01 | IPNPDOC ---
Text Note Date of Service The patient was seen on 05/10/19. NOTE patient on pit 20mU/min. She is having pain with contractions. desiring epidural fht: 145/mod ynes/pos accel/no decel toco: ctx q2-3mins, difficult to nut picker due to patient's body habitus. CE: 3-4/50/-2, no palpable bag on baby's head a/p patient in latent labor. okay for epidural. will reassess for ROM and place IUPC. alex, DO VS,Fishbone, I+O VS, Fishbone, I+O Vital Signs Date Time Temp Pulse Resp B/P (MAP) Pulse Ox O2 Delivery O2 Flow Rate FiO2 05/10/19 13:11 98.6 69 18 178/107 (130) 05/08/19 17:29 98 Room Air I&O- Last 24 Hours up to 6 AM 05/10/19 06:00 Intake Total 250 ml Balance 250 ml ABRAHAM BECERRA DO May 10, 2019 14:01
--- NOTE | 2019-05-10 15:10 | IPNPDOC ---
Text Note Date of Service The patient was seen on 05/10/19. NOTE patient is feeling comfortable with epidural. 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 ce: /-2, IUPC and fse placed for monitoring. a/p patient in latent labor. continue to titrate pit to effect. recheck in 6hrs. Le, DO VS,Fishbone, I+O VS, Fishbone, I+O Vital Signs Date Time Temp Pulse Resp B/P (MAP) Pulse Ox O2 Delivery O2 Flow Rate FiO2 05/10/19 13:11 98.6 69 18 178/107 (130) 05/08/19 17:29 98 Room Air I&O- Last 24 Hours up to 6 AM 05/10/19 06:00 Intake Total 250 ml Balance 250 ml ABRAHAM BECERRA DO May 10, 2019 15:10
[2019-05-10] MEDS ORDERED: REFRIGERATOR IV KEYS XX PRN (15:15)
[2019-05-10] MEDS ORDERED: NALOXONE INJ 0.4 MG/1 ML VIAL (J2310) IV PRN ×3 (15:15→21:49)
[2019-05-10] MEDS ORDERED: FENTANYL/ROPIVACAINE/NACL BAG 100 ML EPIDURAL SCH (15:15)
[2019-05-10] MEDS ORDERED: diphenhydrAMINE INJ 50MG/ML VIAL (J1200) IV PRN (15:15)
[2019-05-10] MEDS ORDERED: EPIDURAL COMMENT XX SCH (15:15)
[2019-05-10] MEDS ORDERED: ePHEDrine SULFATE 25 MG/5 ML(5MG/ML) SYRINGE IV PRN (15:15)
[2019-05-10] MEDS ORDERED: EPIDURAL/PCA KEYS XX PRN (15:15)
[2019-05-10] MEDS ORDERED: LACTATED RINGER'S 1000 ML IV PRN (15:15)
[2019-05-10] MEDS ORDERED: ONDANSETRON 4MG/2ML VIAL (J2405) IV PRN ×3 (15:15→22:45)
[2019-05-10] MEDS ORDERED: OXYTOCIN DRIP 30 UNITS in IV 1 EA IV SCH ×2 (15:45→22:32)
--- NOTE | 2019-05-10 20:03 | IPNPDOC ---
Text Note Date of Service The patient was seen on 05/10/19. NOTE patient has epidural for pain management. pit: 22mU vitals: normal to mild range nad, laying in bed fht: 155/min to mod ynes/no accel/late decels toco: ctx q 2-3mins ce: /-2 per nursing a/p patient in latent labor, remote from delivery with recurrent late decels. given oxygen and fluid bolus, positional changes does not help with FHT. stop pit. Discussed with patient my concern for intolerant to labor. At this time will monitor baby for another 30-60mins. Discussed with patient option of section now or wait to see how baby tolerates labor without pit. If baby shows improvement then pit may be restarted. If not then I would recommend section at that time. Patient states she would like to wait and see how baby does without pit. pit off, reassess in 30 minutes Le, DO VS,Fishbone, I+O VS, Fishbone, I+O Vital Signs Date Time Temp Pulse Resp B/P (MAP) Pulse Ox O2 Delivery O2 Flow Rate FiO2 05/10/19 18:59 98.7 88 142/77 (98) 05/10/19 17:00 18 05/08/19 17:29 98 Room Air I&O- Last 24 Hours up to 6 AM 05/10/19 06:00 Intake Total 250 ml Balance 250 ml ABRAHAM BECERRA DO May 10, 2019 20:03
--- NOTE | 2019-05-10 20:54 | IPNPDOC ---
Text Note Date of Service The patient was seen on 05/10/19. NOTE Come to room and discussed with patient regarding restarting pitocin. Patient desires to have primary section at this time. Discussed with patient longer recovery due to pain. risks of infection, bleeding requiring blood transfusion, hysterectomy, injury to surrounding organs, take back to the OR for infection or injury, possible general anesthesia as well as possible injury to baby discussed with patient. patient expresses understanding and desires to proceed with section. ancef and azithromycin for prophy. back to or once team ready. Le, DO VS,Fishbone, I+O VS, Fishbone, I+O Vital Signs Date Time Temp Pulse Resp B/P (MAP) Pulse Ox O2 Delivery O2 Flow Rate FiO2 05/10/19 18:59 98.7 88 142/77 (98) 05/10/19 17:00 18 05/08/19 17:29 98 Room Air I&O- Last 24 Hours up to 6 AM 05/10/19 06:00 Intake Total 250 ml Balance 250 ml ABRAHAM BECERRA DO May 10, 2019 20:54
[2019-05-10] MEDS ORDERED: MORPHINE PRES-FREE INJ 10 MG/10 ML VIAL (J2274) As Ordered ONE (20:55)
[2019-05-10] MEDS ORDERED: OXYTOCIN INJ 10 UNITS/ML VIAL (J2590) As Ordered ONE (20:57)
[2019-05-10] MEDS ORDERED: LIDOCAINE 2% W/EPIN INJ 20ML **PRES FREE As Ordered ONE (21:00)
[2019-05-10] MEDS ORDERED: AZITHROMYCIN INJ 500 MG, VIAL MATE ADAPTER 1 EACH in D5W 250 ML IV ONE (21:00)
[2019-05-10] MEDS ORDERED: ceFAZolin SOD 2 GM in IV 1 EA IV ONE (21:00)
[2019-05-10] MEDS ORDERED: BICITRA 30ML SOLN UDC PO ONE (21:00)
[2019-05-10] MEDS ORDERED: ceFAZolin SOD 1 GM in D5W MINI-BAG PLUS 50 ML IV ONE (21:00)
[2019-05-10] MEDS ORDERED: ceFAZolin SOD 3 GM in IV 1 EA IV ONE (21:00)
[2019-05-10] MEDS ORDERED: PHENYLephrine HCL 500 MCG/5 ML (100MCG/ML) SYRINGE (J2370) As Ordered ONE (21:44)
[2019-05-10] MEDS ORDERED: dexameTHASONE 4 MG/ML 1ML VIAL (J1100) As Ordered ONE (21:44)
[2019-05-10] MEDS ORDERED: ONDANSETRON 4MG/2ML VIAL (J2405) As Ordered ONE (21:44)
[2019-05-10] MEDS ORDERED: METOCLOPRAMIDE INJ 10MG/2ML VIAL (J2765) IV PRN (21:49)
[2019-05-10] MEDS ORDERED: NALBUPHINE HCL 10 MG/ML AMP (J2300) IV PRN (21:49)
[2019-05-10] MEDS ORDERED: RHOGAM 300 MCG (1500 IU) INJ (J2790) IM SCH (22:45)
[2019-05-10] MEDS ORDERED: PERCOCET 5MG/325MG TAB PO PRN (22:45)
[2019-05-10] MEDS ORDERED: MEASLES,MUMPS,RUBELLA VACCINE INJ (MMR-II) (90707) SC SCH (22:45)
[2019-05-10] MEDS ORDERED: oxyCODONE 5MG TAB PO PRN (22:45)
[2019-05-10] MEDS ORDERED: fentaNYL 100 MCG/2 ML INJECTION (J3010) IV PRN (22:45)
[2019-05-10] MEDS ORDERED: KETOROLAC 30 MG/ML VIAL (J1885) As Ordered ONE (23:10)
[2019-05-10] MEDS: KETOROLAC 30 MG/ML VIAL (J1885) IV SCH (23:15)
--- NOTE | 2019-05-10 23:33 | POST-OPPD ---
Postoperative Procedure Note Date Of Procedure: May 10, 2019 PREOPERATIVE DIAGNOSIS: 1) Gravid @ 40+3wks gestation 2) non-augmentable heart tracing 3) morbid obesity POSTOPERATIVE DIAGNOSIS: 1) status post section 2) morbid obesity FINDINGS: viable female infant, 9/9, OP presentation PROCEDURE: Primary low transverse section SURGEON: Dr. Ricky Haq DO VIDEO EDITOR: Dr. Margo Kc MD ANESTHESIA: Epidural SPECIMENS: none ESTIMATED BLOOD LOSS: 600cc REPLACED: 1500cc LR DRAINS: 150 cc urine COMPLICATIONS: none POSTOPERATIVE CONDITION: stable Indication for procedure: Patient is a 28 yo @ 40+3wks with admitted for IOL for morbid obesity. She progressed to 5cm. heart tracing with recurrent late while patient on Pitocin. Patient with non-augmentable heart tracing, remote from [place] [facility]. Patient desires to have primary low transverse delivery. Description of procedure: The risks, benefits, indications and alternatives to the procedure were reviewed with the patient and informed consent was obtained. Labor epidural anesthesia was dosed for surgical analgesic. She was prepped and draped in the normal sterile fashion in the dorsal supine position with a leftward tilt. The abdomen was entered through a pfannenstiel incision. Sharp dissection taken down to fascia layer. Fascia layer entered with sharply and carried lateral and upward bilaterally. Space between fascia and rectus muscle created bluntly. The rectus muscles and peritoneum bluntly along midline and exposes the gravid uterus. Mobius retractor placed. The vesicouterine peritoneum was identified. A Gibson uterine incision made sharply. The uterine incision was extended superolaterally. Baby cephalic, OP. Head delivered through the hysterotomy. The anterior (right) shoulder delivered, followed by the posterior shoulder. Body followed with ease. The cord was clampedx2 and cut. The was handed off to baby nurse. Pitocin bolus started. Cord blood collected for routine lab. The placenta delivered spontaneously. The uterus was cleared of all clots and debris. The uterine incision was repaired with 2 layers of using 0-Chromic in a running locking fashion and 0-monocryl imbricating layer. Hysterotomy inspected to be hemostatic. Mobius retractor removed. Gutters were cleared of clots. Hysterotomy inspected to be hemostatic. The peritoneum, fascia and muscle bellies were inspected and noted to be hemostatic. The pe ritoneum brought back together midline with 3-0 vicryl. The fascia approximated with 0 vicryl suture in a running fashion. The subcutaneous tissue closed with 3-0 vicryl. The skin was closed with subcuticular 4-0 monocryl. Dressing applied. The vagina was cleared of clots. Sponge laps, needle and instruments count correct x 2. Patient taken to recovery room in stable condition. DO MARIAM Haq LUAT N. May 10, 2019 23:33
[2019-05-10] MEDS ORDERED: PERCOCET 5MG/325MG TAB As Ordered ONE (23:36)
[2019-05-11] VITALS (9 sets, daily range): BP systolic 115–144; BP diastolic 53–83
[2019-05-11] MEDS: diphenhydrAMINE INJ 50MG/ML VIAL (J1200) IV PRN ×2 (02:26→11:56)
[2019-05-11] MEDS: POLYSPORIN TOPICAL OINTMENT 15GM TOP SCH ×4 (02:26→21:32)
[2019-05-11] MEDS: KETOROLAC 30 MG/ML VIAL (J1885) IV SCH ×3 (05:28→18:37)
--- NOTE | 2019-05-11 06:29 | DNPDOC ---
[facility] Delivery Note Delivery Note DATE OF DELIVERY: 05/10/2019 PREDELIVERY DIAGNOSIS: 40+3/7 weeks' gestation and labor. POST DELIVERY DIAGNOSIS: Delivered. PROCEDURE: primary low transverse section DAIRY TESTER: Dr. Abraham Haq DO ANESTHESIA: epidural ESTIMATED BLOOD LOSS: 600 mL. FINDINGS: 6lbs 14oz, 3180 gm female infant, Score 9/9. DELIVERY SUMMARY: uncomplicated primary low transverse section. see operative note for details. ABRAHAM HAQ DO May 11, 2019 06:29
[2019-05-11 07:03] LABS: HEMATOCRIT 29.2 % (36.0-47.0); HEMOGLOBIN 9.6 g/dl (12.0-15.5); MEAN CORPUSCULAR HEMOGLOBIN 30.3 pg (27.0-33.0); MEAN CORPUSCULAR HGB CONC 32.9 g/dl (32.0-36.5); MEAN CORPUSCULAR VOLUME 92.1 fl (80.0-96.0); PLATELET COUNT, AUTOMATED 232 10^3/uL (150-450); RED BLOOD COUNT 3.17 10^6/uL (4.00-5.40); WHITE BLOOD COUNT 14.9 10^3/uL (4.0-10.0)
--- NOTE | 2019-05-11 07:20 | IPNPDOC ---
Progress Note Date of Service: May 11, 2019 Day#: 1 Progress Note SUBJECT: Patient is a 28 yo s/p PLTCD POD #1. Delivery late last night. She has been ambulating, and tolerating regular diet without problem. Breast feeding without issue. carter still in. pain controlled with toradol and percocet PRN. OBJECTIVE: VITAL SIGNS: Within normal limits, afebrile. Alert and oriented times three. Abdomen: Fundus firm at U-2. Soft, NTTP. LE: +1pitting edema, no erythema/tenderness A/P patient POD #1, doing well. encourage bf and ambulating. carter out this AM. routine ppc. anticipate d/c home on ppd #2. VS, I&O, 24H, Fishbone Vital Signs/I&O Vital Signs Date Time Temp Pulse Resp B/P (MAP) Pulse Ox O2 Delivery O2 Flow Rate FiO2 05/11/19 04:00 98.0 101 18 115/72 (86) 97 Room Air I&O- Last 24 Hours up to 6 AM 05/11/19 06:00 Intake Total 4651 ml Output Total 2100 ml Balance 2551 ml Laboratory Data 24H LABS Laboratory Tests 2 05/11/19 06:46: Nucleated Red Blood Cells % (auto) 0.0 CBC/BMP Laboratory Tests 05/11/19 06:46 ABRAHAM BECERRA DO May 11, 2019 07:20
[2019-05-11] MEDS: PRENATAL VITAMINS CHEWABLE TABLET PO SCH (07:53)
[2019-05-11] MEDS: MIRALAX *UNIT DOSE* 17GM PACKET PO SCH ×2 (08:36→21:32)
[2019-05-11] MEDS: PERCOCET 5MG/325MG TAB PO PRN ×2 (10:41→21:33)
[2019-05-12 02:05] VITALS: BP 127/78
[2019-05-12] MEDS: IBUPROFEN 800 MG TAB PO SCH ×2 (02:06→09:48)
[2019-05-12 06:00] VITALS: BP 112/60
--- NOTE | 2019-05-12 06:43 | IPNPDOC ---
Progress Note Date of Service: May 12, 2019 Day#: 1 Progress Note SUBJECT: Patient is a 28 yo s/p PLTCD POD #2. She is ambulating, urinating, tolerating po without problem. Plans on formula feeding. pain controlled with toradol and percocet PRN. OBJECTIVE: VITAL SIGNS: Within normal limits, afebrile. Alert and oriented times three. Abdomen: Fundus firm at U-2. Soft, NTTP. dressing on incision LE: +1 pitting edema, no erythema/tenderness A/P patient POD #2, doing well. encourage ambulating. Discussed breast feeding with patient. routine ppc. D/C today. VS, I&O, 24H, Fishbone Vital Signs/I&O Vital Signs Date Time Temp Pulse Resp B/P (MAP) Pulse Ox O2 Delivery O2 Flow Rate FiO2 05/12/19 06:00 97.9 83 18 112/60 (77) 99 Room Air I&O- Last 24 Hours up to 6 AM 05/12/19 06:00 Intake Total 800 ml Output Total 300 ml Balance 500 ml Laboratory Data 24H LABS Laboratory Tests 2 05/11/19 06:46: Nucleated Red Blood Cells % (auto) 0.0 CBC/BMP Laboratory Tests 05/11/19 06:46 ABRAHAM BECERRA DO May 12, 2019 06:43
--- NOTE | 2019-05-12 06:44 | OBDS ---
[facility] Obstetrical Discharge Sum. Obstetrical Discharge Summary Date: May 10, 2019 : 1 Term: 1 Pre-term: 0 Abortions: 0 Livin VDRL: Non-Reactive Rh: Positive Rubella: Immune Sex: Female Weight: pounds (6), ounces (14), grams (3180) Anesthesia: Regional Anesthesia A/P, Post Course List any complications Admission diagnosis: 1) Gravid @ 40+1wks gestation 2) Morbid obesity Discharge diagnosis: 1) status post primary low transverse section 2) Morbid obesity Condition at Discharge: stable Discharge Instructions: home Activity: as tolerated Diet: regular Medications: filled at [facility] Follow-up: 2 wks Hospital Course: Patient admitted at 40+1wks for induction of labor secondary to morbid obesity. She progressed to 5cm. She had a primary low transverse section for intolerance to labor. Surgery was uncomplicated. course uncomplicated. Patient discharged home on day #2. ABRAHAM BECERRA DO May 10, 2019 23:42
[2019-05-12] MEDS: PRENATAL VITAMINS CHEWABLE TABLET PO SCH (07:58)
[2019-05-12] MEDS: PERCOCET 5MG/325MG TAB PO PRN (07:59)
[2019-05-12] MEDS: MIRALAX *UNIT DOSE* 17GM PACKET PO SCH (09:48)
[2019-05-12] MEDS: POLYSPORIN TOPICAL OINTMENT 15GM TOP SCH (09:48)
== END 2019-05-12 11:35 | disposition home or self-care (01) | DRG 773 ==
LOC: M LDI 17:05 → M OBS 05-11 01:16
PROVIDERS: ADMIT Registered Nurse Maternal Newborn; ATTEND Obstetrics & Gynecology
PROC: 3E0P7GC Introduction of Other Therapeutic Substance into Female Reproductive, Via Natural or Artificial Opening (ICD-10-PCS; 2019-05-08)
PROC: 10D00Z1 Extraction of Products of Conception, Low, Open Approach (ICD-10-PCS; principal; 2019-05-10 20:56)
DX: O48.0 Post-term pregnancy (principal); Z3A.40 40 weeks gestation of pregnancy; O99.824 Streptococcus B carrier state complicating childbirth; O99.844 Bariatric surgery status complicating childbirth; O99.214 Obesity complicating childbirth; E66.01 Morbid (severe) obesity due to excess calories; O76 Abnormality in fetal heart rate and rhythm complicating labor and delivery; Z37.0 Single live birth